=== PATIENT | female | born 1970 | race Caucasian/White ===

== ENCOUNTER 2017-02-12 12:53 | Emergency (ER) | payer OTHER ==
[2017-02-12 14:24] VITALS: BP 137/70
--- NOTE | 2017-02-12 15:12 | UC ---
Dorina Peter Nilda, scribed for Milad Sheets MD on 02/12/17 at 1454 . Epistaxis Nasal HPI - HPI Summary HPI Summary: This patient is a 46 year old F presenting to [facility] with a chief complaint of constant sinus infection symptoms for the past eight days. Patient reports dental pain, sinus congestion, eye drainage, rhinorrhea, and ear ache. Pt states that the back of her throat is "thick back there but does not hurt." Patient denies chest pain. The patient rates the aching pain 8/10 in severity. 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 - History of Current Complaint Chief Complaint: UCRespiratory Stated Complaint: SINUS ISSUE Time Seen by Provider: 02/12/17 14:41 Hx Obtained From: Patient Hx Last Menstrual Period: PARTIAL HYSTERECTOMY Onset/Duration: Sudden Onset, Lasting Days - 8 days, Still Present Timing: Constant Severity Currently: Severe Pain Intensity: 8 Pain Scale Used: 0-10 Numeric Aggravating Factor(s): Nothing Alleviating Factor(s): Other - advil Associated Signs And Symptoms: Positive: Sinus Pain, Nasal Discharge - Allergies/Home Medications Allergies/Adverse Reactions: Allergies Allergy/AdvReac Type Severity Reaction Status Date / Time Amoxicillin [From Augmentin] Allergy Severe Hives Verified 02/12/17 14:24 Clavulanic Acid Allergy Severe Hives Verified 02/12/17 14:24 [From Augmentin] Penicillins Allergy Severe Hives Verified 02/12/17 14:24 Tetracycline Allergy Severe Hives Verified 02/12/17 14:24 PMH/Surg Hx/FS Hx/Imm Hx Previously Healthy: Yes Other History Of: Negative For: HIV, Hepatitis B, Hepatitis C - Surgical History Surgical History: Yes Surgery Procedure, Year, and Place: PARTIAL HYSTERECTOMY, X 2, THYROIDECTOMY - Social History Alcohol Use: None Substance Use Type: None, Prescribed Smoking Status (MU): Never Smoked Tobacco - Immunization History Most Recent Influenza Vaccination: unknown Review of Systems Eyes: Drainage ENT: Dental Pain, Ear Ache, Nasal Discharge, Sinus Congestion, Other - throat hoarse and dry Cardiovascular: Other - negative chest pain All Other Systems Reviewed And Are Negative: Yes Physical Exam Triage Information Reviewed: Yes Appearance: Well-Appearing, Pain Distress - mild Vital Signs: Initial Vital Signs Temp 97.9 F 02/12/17 14:18 Pulse 87 02/12/17 14:18 Resp 16 02/12/17 14:18 BP 137/70 02/12/17 14:18 Pulse Ox 100 02/12/17 14:18 Vital Signs Reviewed: Yes Eyes: Positive: Other: - EOMI, TOSHIA ENT Exam: Normal ENT: Positive: Nasal drainage, TMs normal Neck: Positive: Supple, Nontender Respiratory: Positive: Lungs clear, Other: - breath sounds present Cardiovascular: Positive: RRR Abdomen Description: Positive: Nontender, Soft Bowel Sounds: Positive: Present Musculoskeletal Exam: Normal Musculoskeletal: Positive: Strength Intact, ROM Intact Neurological Exam: Normal Neurological: Positive: Alert, Other: - sensory/motor intact, A&Ox3 Psychological: Positive: Other: - affect/mood appropriate Epistaxis Nasal Course/Dx - Course Course Of Treatment: Allergies noted. Medications reviewed. RX BIAXIN - Differential Dx/Diagnosis Provider Diagnoses: SINUSITIS. Elevated blood pressure without history of hypertension. Discharge - Discharge Plan Condition: Stable Disposition: HOME Prescriptions: Clarithromycin TAB* [Biaxin 500 MG TAB*] 500 mg PO BID #20 tab Patient Education Materials: Sinusitis (ED) Referrals: Julia Gonzales MD [Primary Care Provider] - Additional Instructions: FOLLOW UP WITH YOUR DOCTOR. RETURN TO THE EMERGENCY DEPARTMENT FOR ANY WORSENING OF YOUR CONDITION OR QUESTIONS OR CONCERNS. The documentation as recorded by the Dorina pollock Nilda accurately reflects the service I personally performed and the decisions made by me, Milad Sheets MD.
== END 2017-02-12 14:57 | disposition home or self-care (01) ==
LOC: UCEAST 12:53
DX: J32.9 Chronic sinusitis, unspecified (principal); R03.0 Elevated blood-pressure reading, without diagnosis of hypertension
CPT/HCPCS: 99212; G0463

== ENCOUNTER 2017-04-19 09:15 | Emergency (ER) | payer OTHER ==
[2017-04-19 11:45] VITALS: BP 141/70
--- NOTE | 2017-04-19 12:13 | UC ---
Complaint Female HPI - HPI Summary HPI Summary: This is an otherwise healthy 46 yo female who presents with c/o abd cramping and hematuria. She started with dysuria yesterday and started an OTC pyridium product. Today she started with more severe abd cramping and noted gross blood with small clots. She has bilateral low back pain. No fever or chills. She is mildly nauseous, but no vomiting. - History Of Current Complaint Chief Complaint: UCGU Stated Complaint: URINARY COMPLAINT, ABD CRAMPING Hx Last Menstrual Period: PARTIAL HYSTERECTOMY Pain Intensity: 9 - Allergies/Home Medications Allergies/Adverse Reactions: Allergies Allergy/AdvReac Type Severity Reaction Status Date / Time MS Amoxicillin Allergy Severe Hives Verified 02/12/17 14:24 [From Augmentin] MS Clavulanic Acid Allergy Severe Hives Verified 02/12/17 14:24 [From Augmentin] MS Penicillins [Penicillins] Allergy Severe Hives Verified 02/12/17 14:24 MS Tetracycline Allergy Severe Hives Verified 02/12/17 14:24 [Tetracycline] amoxicillin [From Augmentin] Allergy Hives Verified 04/19/17 11:38 clavulanic acid Allergy Hives Verified 04/19/17 11:38 [From Augmentin] Penicillins Allergy Hives Verified 04/19/17 11:38 tetracycline Allergy Hives Verified 04/19/17 11:38 Home Medications: Home Medications Methenamine/Sodium Salicylate [Cystex Plus Tablet] 2 each PO ONCE PRN 04/19/17 [ History Confirmed 04/19/17] PMH/Surg Hx/FS Hx/Imm Hx Previously Healthy: Yes Other History Of: Negative For: HIV, Hepatitis B, Hepatitis C - Surgical History Surgical History: Yes Surgery Procedure, Year, and Place: PARTIAL HYSTERECTOMY, X 2, THYROIDECTOMY - Family History Known Family History: Positive: None - Social History Alcohol Use: None Substance Use Type: None, Prescribed Smoking Status (MU): Never Smoked Tobacco - Immunization History Most Recent Influenza Vaccination: unknown Review of Systems Constitutional: Negative Skin: Negative Eyes: Negative ENT: Negative Respiratory: Negative Cardiovascular: Negative Gastrointestinal: Abdominal Pain, Nausea Genitourinary: Dysuria, Hematuria Motor: Negative Neurovascular: Negative Musculoskeletal: Negative Neurological: Negative Psychological: Negative Is Patient Immunocompromised?: No All Other Systems Reviewed And Are Negative: Yes Physical Exam Triage Information Reviewed: Yes Appearance: Pain Distress - mild Vital Signs: Initial Vital Signs Temp 97.9 F 04/19/17 11:41 Pulse 81 04/19/17 11:41 Resp 20 04/19/17 11:41 BP 141/70 04/19/17 11:41 Pulse Ox 98 04/19/17 11:41 Vital Signs Reviewed: Yes ENT Exam: Normal Respiratory Exam: Normal Cardiovascular: Positive: RRR, No Murmur Abdomen Description: Positive: Soft, Other: - TTP over suprapubic and lower quadrants bilaterally. Negative: CVA Tenderness (R), CVA Tenderness (L) Musculoskeletal Exam: Normal Musculoskeletal: Positive: Strength Intact Neurological Exam: Normal Psychological Exam: Normal Skin Exam: Normal Diagnostics - Laboratory Diagnostic Studies Completed/Ordered: UA - unable to perform, gross blood on visual inspection Complaint Female Dx - Course Course Of Treatment: This is an otherwise healthy 46 yo female who presents with c/o abd cramping and gross hematuria. No CVA tenderness. Emprically treat for UTI, but considered ureteral stone, but without unilateral complaints less likely. Recommend re-eval in 24h if no improvement. - Differential Dx/Diagnosis Differential Diagnosis/HQI/PQRI: Ureteral Stone, Urinary Tract Infection Provider Diagnoses: 1. UTI Discharge - Discharge Plan Condition: Stable Disposition: HOME Prescriptions: Ciprofloxacin HCl [Cipro] 500 mg PO DAILY #7 tablet Patient Education Materials: Urinary Tract Infection in Women (ED) Referrals: Julia Gonzales MD [Primary Care Provider] - If Needed Additional Instructions: Instructions: 1. Start antibiotic 2. If no improvement in 24h, return for re-evaluation 3. Use ibuprofen and heat packs for pain relief
--- NOTE | 2017-04-22 12:58 | UC ---
- Progress Note Progress Note: urine culture is negative, and she was seen with gross hematuria. Please let her know that her culture is negative. It is possible that the culture is falasely negative, but if she is still having blood she needs to have a follow up, but likely will need imaging (so ED, or her primary care.).
== END 2017-04-19 12:11 | disposition home or self-care (01) ==
LOC: UCCORT 09:15
DX: N39.0 Urinary tract infection, site not specified (principal)
CPT/HCPCS: 87086; 99212; G0463

== ENCOUNTER 2019-02-15 17:05 | Emergency (ER) | payer OTHER ==
--- OUTSIDE RECORDS SUMMARY | 2019-02-15 17:20 | XMS REPORT | Summary of Care ---
:1970 Author Organization [facility] Address [address] [place] [address] Care Team Providers Name Role Phone Angelic Nion Primary Care Provider Reason for Visit Reason Comments Follow Up Results lab results Medication Refill levothyroxine Encounter Details Date Type Department Care Team Description 01/06/2019 Office Visit [facility] Angelic Nino MD Hypothyroidism, unspecified type (Primary Dx); Medicine [address] Screening mammogram, encounter for; [address] [facility] [address] [place] [address] Recurrent major depressive disorder, in full remission (HCC) [place] [address] [phone] Allergies Active Allergy Reactions Severity Noted Date Comments Augmentin Hives High 11/21/2017 Erythromycin Hives High 11/21/2017 Tetracycline Hcl Hives High 11/21/2017 Ketorolac Tromethamine Hives High 11/21/2017 documented as of this encounter (statuses as of 01/06/2019) Medications Medication Sig Dispensed Refills Start Date End Date Status sertraline (ZOLOFT) Take 150 mg 0 Active 50 MG Oral Tab by mouth DAILY. buPROPion XL Take 150 mg 0 Active (WELLBUTRIN XL) 150 by mouth. MG Oral TABLET SR Take with 24 HR 24 hour 300 mg daily tablet buPROPion Take 300 mg 0 Active (WELLBUTRIN XL) 300 by mouth MG Oral TABLET SR DAILY. 24 HR levothyroxine Take 300 mcg 45 Tab 1 01/06/2019 Active (SYNTHROID) 300 MCG by mouth Oral EVERY OTHER TabIndications: DAY. Hypothyroidism, unspecified type levothyroxine Take 1 Tab 90 Tab 1 01/06/2019 Active (SYNTHROID) 75 MCG by mouth Oral Tab BEFORE BREAKFAST. levothyroxine Take 1 Tab 90 Tab 1 01/06/2019 Active (SYNTHROID) 200 MCG by mouth Oral Tab BEFORE BREAKFAST. levothyroxine Take 300 mcg 0 Discontinued (SYNTHROID) 300 MCG by mouth 9 (Reorder) Oral Tab EVERY OTHER DAY. levothyroxine TAKE 1 30 Tab 1 12/05/2018 Discontinued (SYNTHROID) 75 MCG TABLET BY 9 (Reorder) Oral Tab MOUTH EVERY DAY WITH 200MCG TO EQUAL 275MCG levothyroxine TAKE 1 30 Tab 1 12/05/2018 Discontinued (SYNTHROID) 200 MCG TABLET BY 9 (Reorder) Oral Tab MOUTH EVERY DAY documented as of this encounter (statuses as of 01/06/2019) Active Problems Problem Noted Date Thyroid cancer 11/21/2017 Overview: ~ 1998 TSH (thyroid-stimulating hormone deficiency) 11/21/2017 Overview: Alternates 275 and 300 ; likes to be at 0.7 Major depressive disorder in full remission 11/21/2017 Overview: Follow with Valery Mitchell - ; Senthil Horowitz documented as of this encounter (statuses as of 01/06/2019) Immunizations Name Administration Dates Next Due Influenza (IM) Preservative Free 12/25/2018 documented as of this encounter Social History Tobacco Use Types Packs/Day Years Used Date Never Smoker Smokeless Tobacco: Never Used Sex Assigned at Date Recorded Not on file Job Start Date Occupation Industry Not on file Not on file Not on file Travel History Travel Start Travel End No recent travel history available. documented as of this encounter Last Filed Vital Signs Vital Sign Reading Time Taken Comments Blood Pressure 114/76 01/06/2019 3:36 PM EST Pulse 86 01/06/2019 3:36 PM EST Temperature - - Respiratory Rate - - Oxygen Saturation 97% 01/06/2019 3:36 PM EST Inhaled Oxygen Concentration - - Weight 129.3 kg (285 lb) 01/06/2019 3:36 PM EST Height 167.6 cm (5' 6") 01/06/2019 3:36 PM EST Body Mass Index 46 01/06/2019 3:36 PM EST documented in this encounter Progress Notes Angelic Nino MD - 01/06/2019 2:20 PM EST NAME:Cordelia Mancuso [birth year] ENC Date: 01/06/2019 CC: Chief Complaint Patient presents with Follow Up Results lab results Medication Refill levothyroxine Cordelia Mancuso is a 48-y.o. female New last visit - under care for hypothryoid after surgery for thyroid cancer- Alternating 275 and 300 mcg levothyroxine Recent TSH 2.. Has new grandchild coming up and discussion of pertussis Current Outpatient Medications Medication Sig buPROPion (WELLBUTRIN XL) 300 MG Oral TABLET SR 24 HR Take 300 mg by mouth DAILY. buPROPion XL (WELLBUTRIN XL) 150 MG Oral TABLET SR 24 HR 24 hour tablet Take 150 mg by mouth.Take with 300 mg daily levothyroxine (SYNTHROID) 200 MCG Oral Tab TAKE 1 TABLET BY MOUTH EVERY DAY levothyroxine (SYNTHROID) 300 MCG Oral Tab Take 300 mcg by mouth EVERY OTHER DAY. levothyroxine (SYNTHROID) 75 MCG Oral Tab TAKE 1 TABLET BY MOUTH EVERY DAY WITH 200MCG TO EQUAL 275MCG sertraline (ZOLOFT) 50 MG Oral Tab Take 150 mg by mouth DAILY. No current facility-administered medications for this visit. Patient Active Problem List Diagnosis Date Noted Thyroid cancer (HCC) 11/21/2017 ~ 1998 TSH (thyroid-stimulating hormone deficiency) 11/21/2017 Alternates 275 and 300 ; likes to be at 0.7 Major depressive disorder in full remission (HCC) 11/21/2017 Follow with Valery Mitchell - ; Senthil Horowitz History reviewed. No pertinent family history. No cardiopulmonary symptoms No upper or lower GI complaints No urinary tract symptoms. No bruising/ bleeding. No neurological complaints . No insomnia.+ . Social History Tobacco Use Smoking status: Never Smoker Smokeless tobacco: Never Used Substance Use Topics Alcohol use: Not on file Drug use: Not on file Results for orders placed or performed in visit on 12/16/18 IRON & TIBC WITH % SATURATION Result Value Ref Range Iron Serum 63 37 - 170 UG/DL Iron Binding Capacity 361 261 - 478 UG/DL % Saturation Calculation 17 (L) 20 - 50 % THYROID STIMULATING HORMONE Result Value Ref Range TSH 0.36 (L) 0.47 - 4.68 uIu/ml OBJECTIVE: BP 114/76 | Pulse 86 | Ht 5' 6" (1.676 m) | Wt 285 lb (129.3 kg) | LMP ( LMP Unknown) Comment: patial hysterectomy | SpO2 97% | BMI 46.00 kg/m . Heent neg Neck no JVD, thyromegaly or bruit Lungs Clear CV rrr Abd soft, nontender, no organomegaly Ext no edema; no lesions; pulses intact Neuro: intellect intact ; motor including gait unremarkable A/P ICD-9-CM ICD-10-CM 1. Hypothyroidism, unspecified type 244.9 E03.9 2. Screening mammogram, encounter for V76.12 Z12.31 MAMMO SCREENING TOMOSYNTHESIS BILATERAL 3. Recurrent major depressive disorder, in full remission (HCC) 296.36 F33.42 There are no Patient Instructions on file for this visit. AUTHOR: Angelic Nino MD 15:57 01/06/2019 documented in this encounter Plan of Treatment Name Type Priority Associated Diagnoses Order Schedule MAMMO SCREENING Imaging Routine Screening mammogram, Expected: TOMOSYNTHESIS BILATERAL encounter for 01/06/2019, Expires: 04/05/2020 THYROID STIMULATING Lab Routine Hypothyroidism, Expected: 01/06/2019 HORMONE unspecified type (Approximate), Expires: 07/05/2019 Health Maintenance Due Date Last Done Comments PAP SMEAR 1970 LIPID DISORDER SCREENING 1988 MAMMOGRAM (SCREENING) 2010 DIABETES SCREENING 11/21/2018 11/21/2017 DEPRESSION SCREENING 01/07/2020 01/06/2019 INFLUENZA VACCINE Completed 12/25/2018 HPV IMMUNIZATION SERIES Aged Out No longer eligible based on patient's age to complete this topic MENINGOCOCCAL VACCINE IMM Aged Out No longer eligible based on patient's age to complete this topic PNEUMOCOCCAL 0-64 YRS Aged Out No longer eligible based on patient's age to complete this topic documented as of this encounter Goals Goal Patient Goal Associated Recent Patient-Stated? Author Type Problems Progress Depression Depression No amina Nino (PHQ-9) MD Angelic total score < 5 Note: This is an individualized treatment (depression) goal for Cordelia Mancuso: Displayed above is your goal for a depression screening (PHQ-9) score that would indicate good control of your depression. Keep a regular sleep schedule Lifestyle No Angelic Nino MD Note: This is an individualized lifestyle goal for Cordelia Mancuso: Please maintain a regular sleep schedule. This may help with some symptoms of depression. Take all prescribed medications as directed Self-management Angelic Clements MD Note: This is an individualized self-management goal for Cordelia Mancuso: Please take all prescribed medications as directed. 1. Do not skip doses. If you cannot afford your medications, talk with your doctor. 2. Use a pill reminder system such as a pill box if needed. Your pharmacist can help you with this. 3. Contact your Pharmacy 5 days before your medication runs out. If you cannot take your medications for any reasons, talk with your doctor. 4. Please bring all of your medication bottles and inhalers (or a list of all your medications/inhalers) with you to every visit. Potential barriers to meeting all of your care plan goals will continue to be addressed on an ongoing basis. documented as of this encounter Results Not on filedocumented in this encounter Visit Diagnoses Diagnosis Hypothyroidism, unspecified type - Primary Screening mammogram, encounter for Recurrent major depressive disorder, in full remission (HCC) documented in this encounter Insurance Payer Benefit Plan / Subscriber ID Effective Dates Phone Address Type Group [employer] [facility] xxxxxxxxxx 2013-Present [employer] documented as of this encounter
[2019-02-15 17:26] VITALS: BP 113/71
[2019-02-15] MEDS ORDERED: Ibuprofen TAB* 600 MG PO ONE (17:34)
--- NOTE | 2019-02-15 17:41 | UC ---
Hand/Wrist HPI - HPI Summary HPI Summary: Heel caught in a pot hole and fell extending left hand. Pain in the lateral hand and wrist. no numbness. - History Of Current Complaint Chief Complaint: UCUpperExtremity Stated Complaint: SP FALL-LT HAND INJURY Time Seen by Provider: 02/15/19 17:31 Hx Obtained From: Patient Hx Last Menstrual Period: PARTIAL HYSTERECTOMY ?: No Onset/Duration: Sudden Onset, Lasting Hours - 4, Still Present Severity Initially: Severe Severity Currently: Moderate Pain Intensity: 7 Character Of Pain: Sharp, Dull, Aching, Throbbing Aggravating Factor(s): Movement Alleviating Factor(s): Nothing Associated Signs And Symptoms: Positive: Negative Related History: Dominant Hand Right - Allergies/Home Medications Allergies/Adverse Reactions: Allergies Allergy/AdvReac Type Severity Reaction Status Date / Time amoxicillin [From Augmentin] Allergy Hives Verified 02/15/19 17:20 clavulanic acid Allergy Hives Verified 02/15/19 17:20 [From Augmentin] Penicillins Allergy Hives Verified 02/15/19 17:20 tetracycline Allergy Hives Verified 02/15/19 17:20 Home Medications: Home Medications Levothyroxine TAB* [Synthroid 150 MCG TAB*] 300 mcg EVERY OTHER DAY 02/15/19 [ History Confirmed 02/15/19] PMH/Surg Hx/FS Hx/Imm Hx Endocrine History: Hypothyroidism Other Cancer History: Thyroid Other History Of: Negative For: HIV, Hepatitis B, Hepatitis C - Surgical History Surgical History: Yes Surgery Procedure, Year, and Place: PARTIAL HYSTERECTOMY, X 2, THYROIDECTOMY - Family History Known Family History: Positive: None Negative: Cardiac Disease, Hypertension, Diabetes - Social History Occupation: Employed Full-time Lives: With Family Alcohol Use: None Substance Use Type: None Smoking Status (MU): Never Smoked Tobacco - Immunization History Most Recent Influenza Vaccination: unknown Review of Systems All Other Systems Reviewed And Are Negative: Yes Musculoskeletal: Positive: Arthralgia - Left hand and wrist. Is Patient Immunocompromised?: No Physical Exam Triage Information Reviewed: Yes Appearance: Well-Appearing, Pain Distress, Obese Vital Signs: Initial Vital Signs Temp 96.3 F 02/15/19 17:22 Pulse 96 02/15/19 17:22 Resp 16 02/15/19 17:22 BP 113/71 02/15/19 17:22 Pulse Ox 100 02/15/19 17:22 Vital Signs Reviewed: Yes Eyes: Positive: Conjunctiva Clear Neck exam: Normal Respiratory Exam: Normal Cardiovascular Exam: Normal Musculoskeletal: Positive: Strength Limited @ - Wrist and hand., ROM Limited @ - Left wrist, flex/ ext/ abd/ adduction with pain. 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 Neurological Exam: Normal Psychological Exam: Normal Skin Exam: Normal Diagnostics - Radiology No standard instances Radiology Interpretation Completed By: Radiologist Summary of Radiographic Findings: No fracture. Hand/Wrist Course/Dx - Differential Dx/Diagnosis Differential Diagnosis/HQI/PQRI: Contusion, Fracture, Sprain, Strain Provider Diagnosis: Contusion of left hand including fingers, Sprain of left wrist Discharge ED - Sign-Out/Discharge Documenting (check all that apply): Patient Departure All imaging exams completed and their final reports reviewed: Yes - Discharge Plan Condition: Stable Disposition: HOME Patient Education Materials: Contusion in Adults (ED), Wrist Sprain (ED) Referrals: Angelic Nino MD [Primary Care Provider] - Additional Instructions: Ice for 20 minutes every 2 hours for 48 hours then heat. Use the splint for comfort. - Billing Disposition and Condition Condition: STABLE Disposition: Home
== END 2019-02-15 18:15 | disposition home or self-care (01) ==
LOC: UCCORT 17:05
DX: S60.222A Contusion of left hand, initial encounter (principal); S63.502A Unspecified sprain of left wrist, initial encounter; E89.0 Postprocedural hypothyroidism; Z85.850 Personal history of malignant neoplasm of thyroid; Z79.890 Hormone replacement therapy; Z88.0 Allergy status to penicillin; Z88.1 Allergy status to other antibiotic agents; W18.30XA Fall on same level, unspecified, initial encounter; Y92.9 Unspecified place or not applicable
CPT/HCPCS: 99212; A9270-GY; G0463

== ENCOUNTER 2019-04-23 16:14 | Emergency (ER) | payer OTHER | END 2019-04-23 20:32 | disposition left against medical advice (07) | LOC: UCCORT 16:14 | DX: Z53.21 Procedure and treatment not carried out due to patient leaving prior to being seen by health care provider (principal) ==